=== PATIENT | female | born 1995 | race Caucasian/White ===

== ENCOUNTER 2016-07-21 17:36 | Emergency (ER) | payer BC, OTHER | END 2016-07-21 20:30 | disposition left against medical advice (07) | LOC: ER1 17:36 | DX: Z53.21 Procedure and treatment not carried out due to patient leaving prior to being seen by health care provider (principal) ==

== ENCOUNTER → 2021-04-14 | Outpatient (CLI) | payer BC | LOC: EXRD 04-07 15:30 | DX: N92.6 Irregular menstruation, unspecified (principal) | CPT/HCPCS: 76830; 76856 ==